=== PATIENT | male | born 2005 | race Caucasian/White ===

== ENCOUNTER 2024-08-02 12:09 | Emergency (ER) | payer OTHER, SELFPAY ==
[2024-08-02 12:11] VITALS: BP 123/78
--- NOTE | 2024-08-02 13:00 | ED.GENMED ---
History of Present Illness
General
Chief Complaint: Musculo-Skeletal Complaint
Source: patient
Time Seen by Provider: 08/02/24 12:27
History of Present Illness
History of Present Illness:
Presenting to the emergency department for evaluation after injuring his right ankle while playing basketball yesterday, woke up this morning with worsening swelling and difficulty ambulating prompting him to come to the ER. Patient denies any
previous history of injury or surgery. Did not take anything for pain prior to arrival. No other injuries sustained.
Past History
Past History
ED Past Medical History: None
ED Past Surgical History: None
Social History
Tobacco: Non-smoker
Alcohol: Occasional
Drug: None
Personal: Single
Living: with family
Review of Systems
Review of Systems
All Other Systems: ROS reviewed and negative except as documented in HPI and ROS
Phy Exam
Physical Exam
Physical Exam:
GENERAL: Alert , in no apparent distress
EYE: conjunctiva clear
Head: Normocephalic atraumatic
NECK: Supple,
ENT: mmm.
LUNGS: no acute respiratory distress
NEUROLOGICAL: Alert and oriented
SKIN: Warm and dry, skin intact.
MUSCULOSKELETAL: Right lower extremity: Mild to moderate soft tissue swelling to the lateral malleolus with tenderness over this area. Extremities otherwise warm well-perfused and neurovascularly no tenderness at the base of the metatarsal. No
proximal tib-fib tenderness.
PSYCH: Normal and appropriate interaction.
Scores
Heart Failure Risk
Heart Failure Risk Score: Not Applicable
Heart Score for Chest Pain Patients
STEMI patient?: Not applicable
Withdrawal Assessment of Alcohol
Withdrawal Assessment Completed?: Not applicable
Course
Orders/Labs/Results
Orders:
Orders
08/02/24 12:28
CR Ankle - Right Min 3 Views * Urgent
Comment:
Reason For Exam: pain, swelling
08/02/24 13:00
Jesus Wrap Right-Treatment ONCE
Vital Signs
Initial and Last Documented VS:
Initial Vital Signs
Temp Pulse Resp BP Pulse Ox
98.2 F 97 18 123/78 97
08/02/24 12:11 08/02/24 12:11 08/02/24 12:11 08/02/24 12:11 08/02/24 12:11
Last Documented Vital Signs
Temp Pulse Resp BP Pulse Ox
98.2 F 97 18 123/78 97
08/02/24 12:11 08/02/24 12:11 08/02/24 12:11 08/02/24 12:11 08/02/24 12:11
MDM/Problems Addressed
Differential Diagnosis Includes:
Sprain, contusion, fracture
MDM/Problems Addressed:
19-year-old male presenting to the emergency department for evaluation of right ankle pain/injury occurred while playing basketball yesterday. X-ray ordered and shows no acute fracture. Will place patient in Jesus wrap for comfort. NSAIDs/Tylenol
as needed for pain. Information for orthopedics provided
*Pulse Oximetry
Patient hypoxic: no
*Critical Care Note
Total Time (30-74mins, 75-104mins- exclusive of procedures): Not Applicable
ED Attending Note
-
Portions of this chart may have been created with voice recognition software.� Occasional wrong word or��sound alike� substitutions may have occurred due to the inherent limitations of voice recognition software.
Discharge Plan
Departure
Patient Disposition: Home (Routine Discharge)
Date of Disposition: 08/02/24
Time of Disposition: 13:00
Patient with high blood pressure during this ER visit?: No
Discharge Problem:
Right ankle sprain
Instructions: Ankle Sprain ED
Referrals:
Tristan Pinon MD [Active] - (Ortho)
UNKNOWN - PT DOES,NOT KNOW [Family Provider] -
Interventions
Interventions:
*Risk Screen - Suicide Last Done: 08/02/24 12:11
*General Assessment Last Done: 08/02/24 12:11
*Neglect/Abuse Screening Last Done: 08/02/24 12:11
ED- Fall Risk Assessment Last Done: 08/02/24 12:33
*Nursing Disposition Last Done: 08/02/24 13:07
ED-Musculoskeletal Assessment Last Done: 08/02/24 12:33
Discharge Date and Time
Discharge Date/Time: 08/02/24 13:08
Print Language: BELIZEAN
== END 2024-08-02 13:08 | disposition home or self-care (01) ==
LOC: EMR 12:09
PROVIDERS: EMERGENCY PHYSICIAN Emergency Medicine
DX: S93.401A Sprain of unspecified ligament of right ankle, initial encounter (principal); X58.XXXA Exposure to other specified factors, initial encounter; Y93.67 Activity, basketball
CPT/HCPCS: 99283; 73610

== ENCOUNTER 2024-08-05 12:29 | Emergency (ER) | payer OTHER, SELFPAY ==
[2024-08-05 12:34] VITALS: BP 126/92
--- NOTE | 2024-08-05 13:23 | ED.MUSCINJ ---
HPI-Injury
General
Chief Complaint: Musculo-Skeletal Complaint
Source: patient
Time Seen by Provider: 08/05/24 12:50
History of Present Illness-Injury
Initial Injury comments:
19yoM with no significant past medical history presenting for evaluation of a right ankle injury. Patient was seen in the ED 2 days ago for an ankle sprain. X-rays were negative at that time. His pain completely resolved and he was on the trampoline
last night around 10pm. He did a back flip and landed on his right ankle wrong. He states the ankle looked deformed and he reduced the joint himself. He is here with swelling, ecchymosis, and pain to the ankle. He has some mild tingling of the toes.
He is currently attending [facility] and is home for the .
Past History
Past History
ED Past Medical History: None
ED Past Surgical History: None
Social History
Tobacco: Non-smoker
Alcohol: Occasional
Drug: None
Personal: Single
Living: with family
Phy Exam
General Physical Exam
General Presentation: well appearing and no apparent distress
General age: appears stated age
General Skin: warm and dry
General Habitus: normal
General Mental: alert
ENT Exam
ENT Exam: normocephalic
Pulmonary Exam
Pulmonary Exam: no respiratory distress
Neurological Exam
Neurological Exam: alert
Rafia Coma Scale
Eye Opening: Spontaneous
Verbal Response: Oriented
Motor Response: Obeys Commands
GCS Total Score: 15
Musculoskeletal Exam
Musculoskeletal Exam: other (R ankle: Large amount of soft tissue swelling with ecchymosis. No obvious deformity. +Generalized tenderness to joint. ROM decreased. No tenderness to proximal fibula and ROM of knee intact. 2+ DP pulse and sensation
intact. )
Skin Exam
Skin Exam: warm/dry
Psychiatric Exam
Psychiatric Exam: normal mood/affect
Injury Course
Orders/Labs/Results
Orders:
Orders
08/05/24 12:36
Ankle, Right 3 view CR [CR Ankle - Right Min 3 Views *] Urgent
Comment:
Reason For Exam: pain, trauma
08/05/24 13:10
Splints/Slings/Crut- Treatment ONCE
Crutches: Yes
Location: Right
Type of Splint: Short Leg
08/05/24 13:18
CR Leg Tibia/fibula Right 2 Vw Urgent
Comment:
Reason For Exam: injury
MDM/Problems Addressed
Differential Diagnosis Includes:
19yoM here with R ankle pain after a trampoline injury yesterday. He reports having to reduce the joint after the injury. There is soft tissue swelling, ecchymosis, and tenderness on exam. No obvious deformity. RLE is neurovascularly intact.
Differential diagnosis includes: fracture, dislocation, sprain
X-rays of R ankle obtained in triage which shows a bimalleolar fracture with mild widening of mortise. Tib/fib x-rays added and no additional fractures seen. Patient placed in a short leg splint with stirrup by nursing staff. Neurovascular status
unchanged after splint placement. Advised strict NWB. He was able to get an appt with orthopedics in 2 days. He was discharged in stable condition.
*Critical Care Note
Total Time (30-74mins, 75-104mins- exclusive of procedures): Not Applicable
ED Attending Note
-
Portions of this chart may have been created with voice recognition software.� Occasional wrong word or��sound alike� substitutions may have occurred due to the inherent limitations of voice recognition software.
Discharge Plan
Departure
Patient Disposition: Home (Routine Discharge)
Date of Disposition: 08/05/24
Time of Disposition: 14:14
Patient with high blood pressure during this ER visit?: No
Discharge Problem:
Bimalleolar fracture of right ankle
Instructions: Ankle Fracture (DC)
Referrals:
Vimal Gandhi MD [Active] -
UNKNOWN - PT DOES,NOT KNOW [Family Provider] -
Activity Restrictions/Additional Instructions:
Keep splint in place and do not bear weight on the right ankle. Take Tylenol and ibuprofen for pain.
Please follow-up with orthopedics on Saturday. Return to the ER with any worsening symptoms or new numbness.
Interventions
Interventions:
*Risk Screen - Suicide Last Done: 08/05/24 13:57
*General Assessment Last Done: 08/05/24 14:35
*Neglect/Abuse Screening Last Done: 08/05/24 13:57
*Nursing Disposition Last Done: 08/05/24 14:39
ED-Musculoskeletal Assessment Last Done: 08/05/24 13:51
Discharge Date and Time
Discharge Date/Time: 08/05/24 14:40
Print Language: [email or web address]
[2024-08-05 14:39] VITALS: BP 142/84
== END 2024-08-05 14:40 | disposition home or self-care (01) ==
LOC: EMR 12:29
PROVIDERS: EMERGENCY PHYSICIAN Emergency Medicine
DX: S82.841A Displaced bimalleolar fracture of right lower leg, initial encounter for closed fracture (principal); X58.XXXA Exposure to other specified factors, initial encounter; Y93.44 Activity, trampolining
CPT/HCPCS: 29515; 99283; 73590; 73610

== ENCOUNTER 2024-08-07 09:16 | Day surgery (SDC) | payer OTHER, SELFPAY ==
[2024-08-07] VITALS (9 sets, daily range): BP systolic 113–146; BP diastolic 63–92
[2024-08-07] MEDS: TYLENOL 1000 MG PO (14:10)
[2024-08-07] MEDS: DEMEROL 12.5 MG IV (17:54)
== END 2024-08-07 18:45 | disposition home or self-care (01) ==
LOC: SDS 09:16
PROVIDERS: ATTENDING PHYSICIAN Student in an Organized Health Care Education/Training Program
DX: S82.851A Displaced trimalleolar fracture of right lower leg, initial encounter for closed fracture (principal); S93.431A Sprain of tibiofibular ligament of right ankle, initial encounter; Y93.44 Activity, trampolining
CPT/HCPCS: 27822; 27829; 73600; 76000; C1713